=== PATIENT | female | born 1995 | race Caucasian/White ===

== ENCOUNTER 2017-06-18 15:43 | Emergency (ER) | payer OTHER ==
[~2017-06-18] VITALS: Ht 162.6 cm; Wt 101.0 kg
[~2017-06-18 15:43] MED LIST: ALBUTEROL SULF8.5 GM IH
[2017-06-18] MEDS ORDERED: NAPROSYN500 MG PO (17:22)
[2017-06-18 17:47] VITALS: BP 134/87
== END 2017-06-18 17:48 | disposition home or self-care (01) ==
LOC: EME 15:43
DX: S83.91XA Sprain of unspecified site of right knee, initial encounter (principal); F41.9 Anxiety disorder, unspecified; Z88.0 Allergy status to penicillin
CPT/HCPCS: 73564; 99281; 99284

== ENCOUNTER 2017-08-21 05:41 | Day surgery (SDC) | payer OTHER ==
[~2017-08-21] VITALS: Ht 162.6 cm; Wt 90.7 kg
[~2017-08-21 05:41] MED LIST changes: +CELEXA20 MG PO; +NAPROSYN500 MG PO
[2017-08-21 06:14] VITALS: BP 137/92
[2017-08-21 11:41] VITALS: BP 110/65
[2017-08-21 12:33] VITALS: BP 132/72
== END 2017-08-21 12:40 | disposition home or self-care (01) ==
LOC: SDC 05:41
DX: S83.511A Sprain of anterior cruciate ligament of right knee, initial encounter (principal); S83.271A Complex tear of lateral meniscus, current injury, right knee, initial encounter; M17.11 Unilateral primary osteoarthritis, right knee; M22.41 Chondromalacia patellae, right knee; W17.89XA Other fall from one level to another, initial encounter; J45.909 Unspecified asthma, uncomplicated; Z82.61 Family history of arthritis; Z82.49 Family history of ischemic heart disease and other diseases of the circulatory system
CPT/HCPCS: C1713; J1100; J1170; J1885; J2250; J2405; J2710; J3010; J7643; S0020